=== PATIENT | male | born 1975 | race Caucasian/White ===

== ENCOUNTER 2017-02-19 21:29 | Observation (INO) | payer BC ==
[2017-02-19 21:46] LABS: BASOPHILS 0.2 % (0.0-2.0); EOSINOPHILS 1.3 % (0.0-6.0); EOSINOPHILS# 0.2 X 10^3uL (0.0-0.4); HEMOGLOBIN 15.1 g/dL (14.0-18.0); LYMPHOCYTES 15.9 % (20.0-40.0); MEAN CELL VOLUME 84.9 fL (80.0-100.0); MEAN CORPUS. HGB CONCENTRATION 34.4 g/dL (32.0-36.0); MEAN CORPUSCULAR HEMOGLOBIN 29.2 pg (29.0-35.0); MEAN PLATELET VOLUME 8.7 fL (7.4-10.4); MONOCYTES 6.4 % (2.0-10.0); MONOCYTES# 0.8 X 10^3uL (0.2-1.0); NEUTROPHILS 76.2 % (54.0-75.0); NEUTROPHILS# 9.5 X 10^3uL (2.6-6.7); PLATELET COUNT 251 X 10^3uL (130-440); RED BLOOD COUNT 5.17 X 10^6uL (4.20-6.10); RED CELL DISTRIBUTION WIDTH 12.9 % (11.5-14.5); WHITE BLOOD COUNT 12.5 X 10^3uL (3.9-10.7)
[2017-02-19] MEDS ORDERED: LORazepam 2 MG/ML INJ ONE (21:50)
[2017-02-19] MEDS ORDERED: DIAZEPAM 10 MG/2 ML SYR ONE ×2 (21:51→22:20)
[2017-02-19 21:57] LABS: BLOOD UREA NITROGEN 17 mg/dL (9-20); CALCIUM 9.7 mg/dL (8.4-10.2); CHLORIDE 99 mmol/L (98-107); EST GLOMERULAR FILTRATION RATE > 60 mL/min; GLUCOSE 132 mg/dL (70-100); MAGNESIUM 2.3 mg/dL (1.6-2.3); POTASSIUM 4.3 mmol/L (3.5-5.1); SODIUM 142 mmol/L (137-145)
[2017-02-19] MEDS ORDERED: HOME MEDICATION LIST NEEDED 1 EA EACH MISC ONE (23:45)
[2017-02-20] MEDS ORDERED: ACETAMINOPHEN 325 MG TABLET PO PRN (00:01)
[2017-02-20] MEDS ORDERED: MAG-AL PLUS XS SUSP 30 ML UDC PO PRN (00:01)
--- NOTE | 2017-02-20 00:48 | ER PHYSICIAN DOCUMENTATION ---
Physician Documentation [facility] Name:Harry Campbell Age:41 yrs Sex:Male :1975 Arrival Date:02/19/2017 Time:21:29 Bed4 Private MD: Pro Lovelace Disposition: 02/19/17 23:41 Admit ordered for Elmo Bautista. Preliminary diagnosis are Benign Positional Vertigo, Vomiting - Dehydration. - Bed requested for Medical/Surgical. - Condition is Fair. - Problem is an ongoing problem. - Symptoms have improved. 23 HR OBS Yes HPI: 02/19 21:37 This 41 yrs old Male presents to ER via EMS with complaints of Severe cd Vertigo, Nausea and Vomiting. 21:37 The patient presents with sense of spinning, vertigo. Onset: The symptom(s)/episode cd began/occurred acutely, today, and became worse 3 hour(s) ago. Context: occurred at home, occurred while the patient was lying down. Modifying factors: The symptoms are alleviated by holding head still, and Ativan 0,5 mg IVP by EMS [employer], the symptoms are aggravated by movement of head, changing position. Associated signs and symptoms: Pertinent positives: nausea, vomiting, Pertinent negatives: blurred vision, chest pain, confusion, diaphoresis, head injury, headache, near-syncope, palpitations, syncope. Severity of symptoms: At their worst the symptoms were severe just prior to arrival, in the emergency department the symptoms have improved mildly. Patient's baseline: Neuro: alert and fully oriented, Motor: no deficits, Ambulation: walks without assistance, Speech: normal, Patient has had Vertigo for the past 2 1/2 weeks. He has seen his PCP in [place] and placed on Flonase, Meclizine and Cirtrizine. None of these meds have helped today. He has been battling this Vertigo all day and it became much worse at 18:30 PM tonight. He has vomited over 15 times this evening. He has not seen an ENT Specialist yet. He denies severe headaches.. The patient has experienced similar episodes in the past, but today's symptoms are worse, lasting longer. Historical: - Allergies: No known drug Allergies; - Home Meds: 1. None 2. meclizine 12.5 mg oral tab 2 tabs 3 times per day - PMHx: vertigo; - PSHx: None; - Tetanus: < 10 years. - Ebola Screening: : Patient negative for fever greater than or equal to 101.5 degrees Fahrenheit, and additional compatible Ebola Virus Disease symptoms. Patient denies exposure to infectious person. Patient denies travel to an Ebola-affected area in the 21 days before illness onset. No symptoms or risks identified at this time. . - Immunization history: Flu Vaccine None. - Social history: Smoking status: Patient states was never smoker of tobacco. Patient uses alcohol occasionally. Patient/guardian denies using street drugs. ROS: 21:58 Cardiovascular: Negative for chest pain, palpitations, edema and pleuritic pain. cd 21:58 Respiratory: Negative for shortness of breath, dyspnea on exertion, cough, sputum cd production, wheezing, hemoptysis and pleuritic chest pain. Back: Negative for injury, pain or muscle spasms. MS/Extremity: Negative for injury, deformity, edema, calf tenderness, pain or coldness. 21:58 Skin: Negative for injury, rash, itching and discoloration. 21:58 Constitutional: Positive for poor PO intake, Negative for body aches, chills, fever. 21:58 ENT: Positive for tinnitus, Negative for ear pain, nasal discharge, rhinorrhea, sinus congestion, sinus pain, sore throat. 21:58 Neck: Negative for pain with movement, pain at rest, stiffness. 21:58 Abdomen/GI: Positive for nausea, vomiting, anorexia, Negative for abdominal pain, diarrhea, abdominal distension. 21:58 Neuro: Positive for dizziness, tinnitus, Vertigo and sensation of movement when looking to the right or turning his head to the right, Negative for altered mental status, headache, loss of consciousness, numbness, seizure activity, speech changes, syncope, near syncope, tingling, weakness. 21:58 All other systems are negative. Exam: Skin: Warm, dry with normal turgor. Normal color with no rashes, no lesions, and no evidence of cellulitis. 22:07 MS/ Extremity: Pulses equal, no cyanosis. Neurovascular intact. Full, normal range cd of motion. 22:07 Constitutional: The patient appears alert, awake, non-diaphoretic, non-toxic, well developed, well nourished, anxious. 22:07 Head/face: Exam is negative for acute changes, Sinus tenderness, is not appreciated. 22:07 Eyes: Periorbital structures: appear normal, Pupils: equal, round, and reactive to light and accomodation, Extraocular movements: intact throughout, Conjunctiva: normal, Nystagmus: nystagmus with fast component noted, bilaterally, Starts with movement to the right. 22:07 ENT: TM's: are normal, no acute changes, Nose: is normal, no acute changes, Mouth: Lips: dry, Oral mucosa: dry, Posterior pharynx: is normal, Dental exam: normal, Voice: is normal. 22:07 Neck: Exam negative for acute changes. 22:07 Cardiovascular: Exam negative for acute changes. 22:07 Respiratory: Exam negative for acute changes. 22:07 Abdomen/GI: Exam negative for acute changes. 22:07 Neuro: Orientation: is normal, to person, place & time. Mentation: is normal, Memory: is normal, Cranial nerves: CN II- XII are normal as tested, Nystagmus with fast component in Both eyes when looking to the right. Cerebellar function: normal finger to nose testing, heel to brandon testing is normal, the patient is unable to track heel to brandon on both sides, Motor: moves all fours, Sensation: is normal, Gait: not tested. Vital Signs: 21:32 BP 158 / 106; Pulse 85; Resp 24; Temp 98.1(O); Pulse Ox 94% on R/A; Weight 117.93 kg arc (R); Height 6 ft. 4 in. (193.04 cm) (R); Pain 10/10; 22:15 BP 129 / 87 (auto/); mk2 22:19 Pulse Ox 98% ; mk2 0611 00:00 BP 120 / 75 (auto/); mk2 00:04 Pulse Ox 96% ; mk2 00:15 BP 111 / 76 (auto/); mk2 00:19 Pulse Ox 96% ; mk2 0610 21:32 Body Mass Index 31.65 (117.93 kg, 193.04 cm) arc Lasha Coma Score: 02/19 22:07 Eye Response: spontaneous(4). Verbal Response: oriented(5). Motor Response: obeys cd commands(6). Total: 15. MDM: 21:36 Patient medically screened. cd 21:45 Differential diagnosis: hypovolemia, idiopathic dizziness, vertigo. Data reviewed: cd vital signs, nurses notes, old medical records, lab test result(s), CBC, electrolytes, and as a result, I will admit patient, administer IV fluids, NS bolus, NS maintenence, prescribe sedation medication, diazepam. Data interpreted: Pulse oximetry: on 2L(s) per nasal cannula, is 96 %. Interpretation: normal. 23:26 ED course: Patient was feeling better, but then became worse again with nausea and cd dizziness again. It was decided to admit the patient to 23 hr OBS status for IV Fluids, Valium prn and Observation.. 23:39 Counseling: I had a detailed discussion with the patient and/or guardian regarding: the cd historical points, exam findings, and any diagnostic results supporting the discharge/admit diagnosis, lab results, the need for further work-up and treatment in the hospital, risk of leaving the Emergency Department. 23:40 Response to treatment: the patient's symptoms have mildly improved after treatment, and cd as a result, I will admit patient. Physician consultation: Elmo Bautista MD was called at 23:36, was contacted at 23:38, regarding admission, to the floor, consult, patient's condition, and will see patient in inpatient room, tomorrow. 02/19 21:49 Order name: CBC AUTO DIF, MDIF/RMOR IF IND; Complete Time: 22:06 EDMS 02/19 21:57 Interpretation: Normal Except: WHITE BLOOD COUNT 12.5; NEUTROPHILS 76.2; Elevated WBC cd with Left shift. 02/19 21:58 Order name: BASIC METABOLIC PANEL; Complete Time: 22:06 EDMS 02/19 22:06 Interpretation: Normal Except: GLUCOSE 132; Hyperglycemia. 02/19 21:58 Order name: MAGNESIUM; Complete Time: 22:06 EDMS 02/19 22:06 Interpretation: Normal. 02/19 21:45 Order name: Oxygen; Complete Time: 21:46 mk2 Dispensed Medications: 21:45 Drug: NS 0.9% 1000 ml; Route: IV; Rate: bolus; Site: left hand; mk2 22:10 Follow up: IV Status: Completed infusion; IV Intake: 1000ml mk2 21:45 Drug: Valium 5 mg; Route: IVP; Site: left hand; mk2 21:57 Follow up: Response: Nausea is decreased :10 Drug: Valium 2.5 mg; Route: IVP; Site: left wrist; 22:20 Follow up: Response: Marked relief of symptoms 22:21 Drug: NS 0.9% 1000 ml; Route: IV; Rate: bolus; Site: left hand; 02/20 00:31 Follow up: IV Status: Completed infusion; IV Intake: 1000ml [facility] 02/19 22:26 CANCELLED (Physician Discretion): fentaNYL (PF) 25 mcg IVP once cd Signatures: Pro Gonzalez MD MD cd Kruger, Meg, RN RN 2
--- NOTE | 2017-02-20 00:48 | ER NURSING DOCUMENTATION ---
Nurse's Notes [facility] Name:Harry Campbell Age:41 yrs Sex:Male :1975 Arrival Date:02/19/2017 Time:21:29 Bed4 Private MD: Diagnosis:Benign Positional Vertigo;Vomiting - Dehydration Presentation: 02/19 21:32 Presenting complaint: Patient states: I'm visiting from [place] and I had trouble with mk2 vertigo before I left but it's been getting worse. I was seen in [place] for the same vomiting and vertigo. Transition of care: Home. Care prior to arrival: IV initiated. gauge and site 22 left hand Oxygen administered. IV Fluids given by EMS NS 1000 ml Medication(s) given: 0.5 ativan 8 zofran. 21:32 Acuity: MO 3 mk2 21:32 Method Of Arrival: EMS: 420 mk2 Triage Assessment: 21:35 General: Appears uncomfortable, Behavior is cooperative, pleasant. Pain: Denies pain. mk2 EENT: Eyes nystagmus to the R. Reports photophobia ringing in left ear. Neuro: Level of Consciousness is awake, alert, Oriented to person, place, time, event. Neuro: Reports dizziness, photophobia. Cardiovascular: No deficits noted. Respiratory: Breath sounds are clear bilaterally. GI: Reports vomiting, since This afternoon when vertigo worsened. Historical: - Allergies: No known drug Allergies; - Home Meds: 1. None 2. meclizine 12.5 mg oral tab 2 tabs 3 times per day - PMHx: vertigo; - PSHx: None; - Tetanus: < 10 years. - Ebola Screening: : Patient negative for fever greater than or equal to 101.5 degrees Fahrenheit, and additional compatible Ebola Virus Disease symptoms. Patient denies exposure to infectious person. Patient denies travel to an Ebola-affected area in the 21 days before illness onset. No symptoms or risks identified at this time. . - Immunization history: Flu Vaccine None. - Social history: Smoking status: Patient states was never smoker of tobacco. Patient uses alcohol occasionally. Patient/guardian denies using street drugs. Screenin:45 Infectious Disease Risk None. Abuse screen: Denies threats or abuse. Nutritional mk2 screening: No deficits noted. Assessment: 21:45 See Triage Assessment done by same RN. mk2 Vital Signs: 21:32 BP 158 / 106; Pulse 85; Resp 24; Temp 98.1(O); Pulse Ox 94% on R/A; Weight 117.93 kg arc (R); Height 6 ft. 4 in. (193.04 cm) (R); Pain 06/21; 22:15 BP 129 / 87 (auto/); mk2 22:19 Pulse Ox 98% ; mk2 02/20 00:00 BP 120 / 75 (auto/); mk2 00:04 Pulse Ox 96% ; mk2 00:15 BP 111 / 76 (auto/); mk2 00:19 Pulse Ox 96% ; mk2 02/19 21:32 Body Mass Index 31.65 (117.93 kg, 193.04 cm) arc Lasha Coma Score: 02/19 22:07 Eye Response: spontaneous(4). Verbal Response: oriented(5). Motor Response: obeys cd commands(6). Total: 15. ED Course: 21:30 Patient arrived in ED. jt 21:32 Mckayla Granger, RN is Primary Nurse. mk2 21:34 Triage completed. mk2 21:36 Pro Gonzalez MD is Attending Physician. cd 21:44 Arm band placed on Bed in low position Call Light in Reach Gowned HOB Elevated Side mk2 rails up x2. 21:45 Oxygen Oxygen administration via nasal cannula @ 2L/min. mk2 22:00 Valuables Remains with patient. Pulse ox on. NIBP on. Warm blanket given. mk2 22:36 Resting quietly. mk2 23:41 Elmo Bautista MD is Admitting Physician. cd 02/20 00:22 Resting quietly. mk2 00:54 Report given to Em. mk2 Administered Medications: 02/19 21:45 Drug: NS 0.9% 1000 ml; Route: IV; Rate: bolus; Site: left hand; mk2 22:10 Follow up: IV Status: Completed infusion; IV Intake: 1000ml mk2 21:45 Drug: Valium 5 mg; Route: IVP; Site: left hand; mk2 21:57 Follow up: Response: Nausea is decreased mk2 22:10 Drug: Valium 2.5 mg; Route: IVP; Site: left wrist; mk2 22:20 Follow up: Response: Marked relief of symptoms [facility] 22:21 Drug: NS 0.9% 1000 ml; Route: IV; Rate: bolus; Site: left hand; 2 02/20 00:31 Follow up: IV Status: Completed infusion; IV Intake: 1000ml [facility] 02/19 22:26 CANCELLED (Physician Discretion): fentaNYL (PF) 25 mcg IVP once cd Intake: 22:10 IV: 1000ml; Total: 1000ml. [facility] 02/20 00:31 IV: 1000ml; Total: 2000ml. 2 Outcome: 02/19 23:41 Decision to Admit by Provider. cd 02/20 00:43 Admitted to Med/surg accompanied by nurse. 2 Condition: good Instructed on need to admit 00:48 Patient left the ED. 2 Signatures: Pro Gonzalez MD MD cd Kruger, Meg, RN RN mk2 Meryl Booker Reg Reg arc Tennant, Joanne jt Wisely, Beth avera [facility]
[2017-02-20] MEDS: NORMAL SALINE 1,000 ML IV SCH ×2 (01:47→08:48)
[2017-02-20] MEDS: MECLIZINE HCL 12.5 MG TABLET PO SCH ×2 (01:47→06:52)
[2017-02-20] MEDS: DIAZEPAM 10 MG/2 ML SYR IV PRN ×2 (01:50→06:53)
[2017-02-20 03:23] VITALS: TEMP 97.7
[2017-02-20 07:00] VITALS: BP 114/69; PULSE 83
[2017-02-20 07:01] VITALS: O2SAT 94
[2017-02-20 07:50] VITALS: RESP 18
--- NOTE | 2017-02-20 12:13 | HISTORY & PHYSICAL ---
DATE OF ADMISSION: 02/20/17 DATE OF DISCHARGE: 02/20/17 DIAGNOSES 1. Vertigo. 2. Intractable vomiting. HISTORY OF PRESENT ILLNESS: This is a 41-year-old male who presents with a 3 week history of mild vertigo with associated left ear fullness, decreased hearing acuity and perhaps some seasonal allergies. Nine days ago he saw his family physician who prescribed Sudafed, Flonase and meclizine. His balance was off mildly with a spinning sensation. He was able to drive to [place]. However, 5 days ago, he ended up in the ER in [facility] for severe vertigo and intractable vomiting. He was doing reasonably well until yesterday when he experienced severe vertigo and intractable vomiting once again and ended up in our emergency room. No fevers, chills, coryza, sinus pressure, postnasal drainage, sore throat, cough or other URI symptoms. No itchy nose, itchy eyes or sneezing or other allergy symptoms. No previous issues with vertigo. No head trauma. No focal neurologic symptoms. Since he was admitted to the ER last night, he has experienced a little bit of left ear fullness and pressure, but the vertigo itself seems to have resolved with no nausea, ear spinning, etc. The patient does think that the valium was helpful both in [facility] and last night. ALLERGIES: None. MEDICATIONS: None except for recently prescribed Sudafed, Flonase and meclizine. PAST MEDICAL HISTORY: Negative. PAST SURGICAL HISTORY: Negative. SOCIAL HISTORY: , 3 children. manager sterile for a grocery store. No smoking. Social alcohol. FAMILY HISTORY: Mother with diabetes. Father with hypertension. REVIEW OF SYSTEMS: No heart, lung, kidney, liver, diabetes, thyroid, seizures, peptic ulcer disease, hyperlipidemia, skin, allergy or bleeding disorders. No nocturia. PREVENTATIVE HEALTH: Gets annual flu shot. PHYSICAL EXAMINATION VITAL SIGNS: Initial blood pressure in the ER was 158/106 with pulse of 85, respiratory rate 24, temperature 98.1, room air pulse oximetry 94%. By the time he was admitted, blood pressure was 120/75. GENERAL: Well-developed, well-nourished, overweight male, alert and oriented times 3. HEENT: EOMI. PERRL. Fundi difficulty to visualize. No nystagmus. Normal conjunctivae. TMs and ear canals normal. No evidence of fluid behind the eardrum. Sinus are nontender. Nasopharynx and oropharynx noninjected. NECK: No adenopathy, thyromegaly or bruits. Supple. CHEST: Clear. No rales, rhonchi or wheezes. Good breath sounds and symmetry throughout. COR: Without murmurs, gallops, rubs or clicks. No jugular venous distention. No ectopy. ABDOMEN: Soft, nontender. No hepatosplenomegaly. No masses or bruits. Bowel sounds present. LOWER EXTREMITIES: No edema. Good pulses. NEUROLOGIC: Cranial nerves 2 through 12 are intact. Motor 5/5. Sensory intact. No vertigo with horizontal or vertical head movement. HOSPITAL COURSE: The patient was admitted with severe vertigo with intractable vomiting. The patient was hydrated with IV fluids and given IV valium and Phenergan. By the next day, vertigo symptoms had dramatically improved and he was felt to be stable for discharge home. DISCHARGE INSTRUCTIONS: The patient may participate in activities as able. He is advised not to drive until cleared by a physician. He is on a regular diet and encouraged to have good p.o. fluid intake. He will follow up with his family physician on return home and I have recommended a referral to ENT. He is to go to the emergency room if intractable vomiting occurs once again. DISCHARGE MEDICATIONS Prednisone 20 mg p.o. taper, 3 tablets p.o. q.day for 3 days, 2 tablets q.day for 3 days, 1 tablet q.day for 3 days. Phenergan 25 mg p.o. t.i.d. times 3 days then 1 tablet p.o. t.i.d. p.r.n. nausea and vertigo, #18. Valium 5 mg p.o. t.i.d. times 3 days, then 1 tablet p.o. t.i.d. p.r.n. vertigo, #18. MTDD
== END 2017-02-20 11:09 | disposition home or self-care (01) ==
LOC: EDBD 21:29 → ER 21:29 → IN 02-20 00:18
PROVIDERS: ADMIT Family Medicine; ATTEND Family Medicine
DX: R42 Dizziness and giddiness (principal); R11.10 Vomiting, unspecified; E86.0 Dehydration
CPT/HCPCS: 80048; 83735; 85025; 96361; 96374; 96376; 99285; A0425; A0427; G0378; J2060; J3360; J7030